=== PATIENT | male | born 1975 | race Caucasian/White ===

== ENCOUNTER 2018-12-16 07:45 | Observation (INO) ==
[2018-12-16] MEDS ORDERED: ASPIRIN 81 MG CHEWTAB PO ONE (08:05)
[2018-12-16] MEDS ORDERED: ASPIRIN 81 MG CHEWTAB ONE (08:06)
[2018-12-16] MEDS ORDERED: NITROSTAT ONE (08:07)
[2018-12-16 08:10] LABS: BASOPHILS # (AUTO) 0.1 X10^3/uL (0.0-0.1); BASOPHILS % (AUTO) 0.7 % (0.2-1.0); EOSINOPHILS # (AUTO) 0.3 x10^3/uL (0.0-0.2); EOSINOPHILS % (AUTO) 1.8 % (0.9-2.9); HEMOGLOBIN 16.9 g/dL (13.5-18.0); LYMPHOCYTES # (AUTO) 3.1 X10^3/uL (1.3-2.9); LYMPHOCYTES % (AUTO) 20.2 % (21.0-51.0); MEAN CORPUSCULAR HEMOGLOBIN 28.4 pg (27.0-34.0); MEAN CORPUSCULAR HGB CONC 34.4 g/dL (33.0-35.0); MEAN CORPUSCULAR VOLUME 82.4 fL (80.0-100.0); MEAN PLATELET VOLUME 8.3 fL (7.4-11.0); MONOCYTES # (AUTO) 0.8 x10^3/uL (0.3-0.8); MONOCYTES % (AUTO) 5.4 % (0.0-13.0); NEUTROPHILS # (AUTO) 10.9 x10^3/uL (2.2-4.8); NEUTROPHILS % (AUTO) 71.9 % (42.0-75.0); PLATELET COUNT 212 X10^3/uL (150.0-450.0); RED BLOOD COUNT 5.94 X10^6/uL (4.7-6.0); RED CELL DISTRIBUTION WIDTH 14.6 % (11.6-16.5); WHITE BLOOD COUNT 15.1 X10^3/uL (3.6-10.0)
[2018-12-16] MEDS: NITROSTAT SL PRN ×2 (08:11→08:26)
[2018-12-16] MEDS ORDERED: PEPCID 20 MG IV PREMIX* 20 MG/50 ML BAG IV ONE (08:15)
[2018-12-16] MEDS ORDERED: PEPCID 20 MG IV PREMIX* 20 MG/50 ML BAG ONE (08:18)
--- NOTE | 2018-12-16 08:23 | DR.CP ---
HPI Time Seen Time Seen by Provider: 12/16/18 08:05 PCP Primary Care Physician: nori HPI Comment HPI Comment: PATIENT IS 42YR OLD WHITE MALE WITH 9/10 MID SUBSTERNAL PRESSURE SINCE YESTERDAY. Complaint Chief Complaint Doctor Comments: CHEST PAIN TIMES ONE DAY. Chief Complaint:: patient stated he started having chest pain yesterday evening but was worse through the night. pt statetd it fells like a constant heart burn with mid chest pressure and short of breath. Source History Provided: Patient Mode of Arrival Mode of Arrival: Ambulatory Timing Onset of Chief Complaint: 12/15/18 Location Chest Pain Radiation Location: None Associated Signs and Symptoms Associated Signs and Symptoms: None PMH PMH Past Medical History: No Past Surgical History: No Family History History of Family Medical Conditions: No Social History Does patient currently use any type of tobacco product: No Have you used tobacco products in the last 12 months: No Type of Tobacco Use: Cigarettes How many years tobacco product used: 1 Does any household member use tobacco: No Alcohol Use: None Do you use any recreational Drugs:: No Lives With: Alone Lives Where: Home infectious screening In the last 2 months have you had wt loss of >10#?: NO Have you had fever, night sweats or hemotysis?: No Have you traveled outside the country in the last 6 months?: No Isolation: Standard ROS Review of Systems Constitutional: See HPI, Weakness and Fatigue; negative Fever Eyes: No Symptoms Reported and See HPI; negative Eye Pain, Blurred Vision and Diplopia ENTM: No Symptoms Reported and See HPI; negative Ear Pain, Nose Discharge, Nose Congestion and Throat Pain Respiratoy: See HPI and Short of Breath; negative Productive Cough and Wheezing Cardiovascular: See HPI and Chest Pain; negative Edema, Palpitations and Syncope Gastrointestinal/Abdominal: See HPI and Nausea; negative Abdominal Pain, Consti pation, Diarrhea and Vomiting Genitourinary: No Symptoms Reported and See HPI; negative Dysuria, Frequency and Hematuria Neurological: See HPI and Weakness; negative Headache and Dizziness Musculoskeletal: No Symptoms Reported and See HPI; negative Back Pain and Muscle Pain Integumentary: No Symptoms Reported and See HPI; negative Change in Color, Bruises and Juandice Hematologic/Lymphatic: No Symptoms Reported and See HPI; negative Easy Bruising, Swollen Glands and Lymphadenopathy Endocrine: No Symptoms Reported and See HPI; negative Increased Thirst, Increased Urine and Decreased Appetite Psychiatric: No Symptoms Reported and See HPI All Other Systems: Reviewed and Negative PE Vitals Vitals: Temperature 98.6 F Pulse Rate [Left Brachial] 63 Pulse Rate 62 Respiratory Rate 16 Blood Pressure [Left Arm] 147/67 Blood Pressure 157/89 O2 Sat by Pulse Oximetry 97 General Limitations: No Limitations General Appearance: Alert and In No Apparent Distress Head Head Exam: Normal Inspection, Atraumatic and Normocephalic Eyes Eye exam: Normal Appearance, PERRL and EOMI; negative Scleral Icterus and Conjunctival Injection ENT ENT Exam: Normal Exam, Normal Oropharynx, Normal External Ear Exam and TM's Normal Bilaterally Chest Chest Inspection: Normal Inspection and Symmetric Chest Wall Rise; negative Tenderness Respiratory Respiratory Exam: Normal Lung Sounds Bilat; negative Accessory Muscle Use, Chest Wall Tenderness and Respiratory Distress Respiratory Exam: Bilateral: Clear to Auscultation Cardiovascular Cardiovascular Exam: Regular Rate, Normal Rhythm and Normal Heart Sounds; negative Systolic Murmur and Diastolic Murmur Abdominal Exam Abdominal Exam: Normal Inspection, Normal Bowel Sounds and Soft; negative Tenderness Extremities Extremities Exam: Normal Inspection Back Back Exam: Normal Inspection Neurologic Neurological Exam: Alert and Oriented X3; negative Motor Sensory Deficit Psychiatric Psychiatric Exam: Normal Affect Skin Skin Exam: Warm, Dry, Intact and Normal Color MDM Differential Diagnosis Differential Diagnosis: Angina, Chest Wall Pain, Cholelithasis, CHF, Costochondritis, Gastritis, Myocardial Infarction, Pericarditis, Pleuritis, Pancreatitis, Pneumonia, Pneumothorax and Pulmonary Embolus COURSE Treatment Treatment: SEE ORDERS. Education/Counseling Education/Counseling: Patient Educated On: Diagnosis ROR Labs Reviewed Laboratory Results Reviewed?: Yes Result Diagrams: 12/16/18 08:00 12/16/18 08:00 Laboratory: WBC 15.1 X10^3/uL (3.6-10.0) H 12/16/18 08:00 RBC 5.94 X10^6/uL (4.7-6.0) 12/16/18 08:00 Hgb 16.9 g/dL (13.5-18.0) 12/16/18 08:00 Hct 49.0 % (42.0-54.0) 12/16/18 08:00 MCV 82.4 fL (80.0-100.0) 12/16/18 08:00 MCH 28.4 pg (27.0-34.0) 12/16/18 08:00 MCHC 34.4 g/dL (33.0-35.0) 12/16/18 08:00 RDW 14.6 % (11.6-16.5) 12/16/18 08:00 Plt Count 212 X10^3/uL (150.0-450.0) 12/16/18 08:00 MPV 8.3 fL (7.4-11.0) 12/16/18 08:00 Neut % (Auto) 71.9 % (42.0-75.0) 12/16/18 08:00 Lymph % (Auto) 20.2 % (21.0-51.0) L 12/16/18 08:00 [place] % (Auto) 5.4 % (0.0-13.0) 12/16/18 08:00 Eos % (Auto) 1.8 % (0.9-2.9) 12/16/18 08:00 Baso % (Auto) 0.7 % (0.2-1.0) 12/16/18 08:00 Neut # (Auto) 10.9 x10^3/uL (2.2-4.8) H 12/16/18 08:00 Lymph # (Auto) 3.1 X10^3/uL (1.3-2.9) H 12/16/18 08:00 [place] # (Auto) 0.8 x10^3/uL (0.3-0.8) 12/16/18 08:00 Eos # (Auto) 0.3 x10^3/uL (0.0-0.2) H 12/16/18 08:00 Baso # (Auto) 0.1 X10^3/uL (0.0-0.1) 12/16/18 08:00 Absolute Nucleated RBC 0.0 /100WBC 12/16/18 08:00 INR Target Range - 12/16/18 08:00 INR 1.00 (0.8-1.3) 12/16/18 08:00 APTT 33.2 SECONDS (22.9-36.5) 12/16/18 08:00 PTT Comment - 12/16/18 08:00 Sodium 138 mmol/L (136-145) 12/16/18 08:00 Corrected Sodium TNP 12/16/18 08:00 Potassium 4.3 mmol/L (3.5-5.1) 12/16/18 08:00 Chloride 103 mmol/L (98-107) 12/16/18 08:00 Carbon Dioxide 29.7 mmol/L (21-32) 12/16/18 08:00 BUN 9 mg/dL (7-18) 12/16/18 08:00 Creatinine 1.14 mg/dL (0.70-1.30) 12/16/18 08:00 Est GFR (MDRD) Af Amer > 60 (>60) 12/16/18 08:00 Est GFR (MDRD) Non-Af > 60 (>60) 12/16/18 08:00 Glucose 108 mg/dL (65-99) H 12/16/18 08:00 Calcium 9.2 mg/dL (8.5-10.1) 12/16/18 08:00 Corrected Calcium TNP 12/16/18 08:00 Magnesium 2.1 mg/dL (1.7-2.9) 12/16/18 08:00 Total Bilirubin 0.40 mg/dL (0.2-1.0) 12/16/18 08:00 AST 10 Units/L (15-37) L 12/16/18 08:00 ALT 29 Units/L (12-78) 12/16/18 08:00 Alkaline Phosphatase 86 Units/L (46-116) 12/16/18 08:00 Creatine Kinase 70 Units/L (39-308) 12/16/18 08:00 CK-MB (CK-2) < 1.0 ng/mL (0-4.0) 12/16/18 08:00 CK/CKMB % Calc 1.4 % (<4) 12/16/18 08:00 Troponin I < 0.02 ng/mL (0-1.5) 12/16/18 08:00 Total Protein 7.9 g/dL (6.4-8.2) 12/16/18 08:00 Albumin 3.8 g/dL (3.4-5.0) 12/16/18 08:00 Globulin 4.1 g/dL (2.5-4.5) 12/16/18 08:00 Albumin/Globulin Ratio 0.9 Ratio (1.1-2.1) L 12/16/18 08:00 Opioid Opioid Risk Tool Total: 0 Total Score Risk Category: Low Risk Copyright: Jack ADAMS predicting aberrant behaviors
[2018-12-16 08:25] LABS: BLOOD UREA NITROGEN 9 mg/dL (7-18); CALCIUM 9.2 mg/dL (8.5-10.1); CARBON DIOXIDE 29.7 mmol/L (21-32); CHLORIDE 103 mmol/L (98-107); CREATININE 1.14 mg/dL (0.70-1.30); SODIUM 138 mmol/L (136-145); TROPONIN I < 0.02 ng/mL (0-1.5); eGFR NON BLACK RACES > 60 (>60)
[2018-12-16 08:29] LABS: ALANINE AMINOTRANSFERASE 29 Units/L (12-78); ALBUMIN 3.8 g/dL (3.4-5.0); ALKALINE PHOSPHATASE 86 Units/L (46-116); ASPARTATE AMINO TRANSFERASE 10 Units/L (15-37); CKMB % 1.4 % (<4); CREATINE KINASE 70 Units/L (39-308); CREATINE KINASE MB < 1.0 ng/mL (0-4.0); MAGNESIUM 2.1 mg/dL (1.7-2.9); TOTAL PROTEIN 7.9 g/dL (6.4-8.2)
--- NOTE | 2018-12-16 08:36 | RAD ---
HISTORY: Chest pain since yesterday Study: Single-view chest Comparison: No priors Findings: Trachea is midline. There is mild cardiomegaly with pulmonary vascular congestion. No CHF or infiltrate is seen. There is mild elevation of the right hemidiaphragm. There is no evidence of pleural fluid or pneumothorax. Osseous structures are intact. IMPRESSION: Mild cardiomegaly with pulmonary vascular congestion. No CHF or infiltrate is seen. Reported By:
[2018-12-16] MEDS ORDERED: MORPHINE SULFATE INJ 4 MG IVP ONE (09:56)
[2018-12-16] MEDS ORDERED: MORPHINE SULFATE INJ 4 MG ONE (09:58)
[2018-12-16] MEDS ORDERED: ZOFRAN INJ 4 MG VIAL IVP PRN (12:42)
[2018-12-16 12:48] VITALS: BMI 34.2
[2018-12-16] MEDS: NS 1000 ML 1,000 ML IV SCH (13:09)
[2018-12-16] MEDS: MORPHINE SULFATE INJ 4 MG IVP PRN ×2 (14:29→20:17)
[2018-12-16 15:41] LABS: CKMB % 1.8 % (<4); CREATINE KINASE 55 Units/L (39-308); CREATINE KINASE MB < 1.0 ng/mL (0-4.0)
[2018-12-16 16:01] LABS: TROPONIN I < 0.02 ng/mL (0-1.5)
[2018-12-16] MEDS: PEPCID 20 MG IV PREMIX* 20 MG/50 ML BAG IV SCH (20:17)
[2018-12-16 21:01] LABS: CREATINE KINASE 51 Units/L (39-308); CREATINE KINASE MB < 1.0 ng/mL (0-4.0); TROPONIN I < 0.02 ng/mL (0-1.5)
--- NOTE | 2018-12-16 21:59 | DR.H&P ---
H&P - History & Physical for Day of: H&P Date: 12/16/18 - Chief Complaint Chief Complaint: CHEST PAIN - History of Present Illness History of Present Illness: IS A 42 YEAR OLD PATIENT OF . HE PRESENTED TO THE ER WITH COMPLAINTS OF CHEST PAIN THAT STARTED ONE DAY AGO. IT IS DESCRIBED BURNING TO THE MID CHEST. HE ALSO REPORTS SHORTNESS OF BREATH. HE RATES PAIN 9/10. ON ARRIVAL, VITALS WERE 98.6-62-16-100%-157/89. LABS WERE OBTAINED. ABNORMAL LAB VALUES INCLUDE THE FOLLOWING: WBC 15.1, GLUCOSE 108, AST 10. CARDIAC ENZYMES WITHIN NORMAL LIMITS. EKG OBTAINED AND REVEALED SINUS RHYTHM WITH HR 65. CHEST XRAY OBTAINED AND REVEALED: Mild cardiomegaly with pulmonary vascular congestion. No CHF or infiltrate is seen. HE WAS GIVEN MORPHIN 4MG IV X 1 DOSE, PEPCID 20MG IV X 1 DOSE, AND ASPIRIN 325MG PO X 1 DOSE IN THE ER. WE ADMITTED PATIENT FOR FURTHER EVALUATION AND TREATMENT OF CHEST PAIN, RULE OUT ACUTE [place]. HE WAS STARTED ON NORMAL SALINE AT 50ML/HR, PEPCID 20MG IV Q12, MORPHINE 4MG IV Q4H PRN, ZOFRAN 4MG IV Q6H PRN, AND NITROGLYCERIN PRN. WE PLAN TO OBTAIN SERIAL CARDIAC ENZYMES AND EKGS. OTHERWISE, WE WILL FOLLOW UP WITH AM LABS AND CONTINUE TO MONITOR. - Family History Family Medical History: [place], Coronary Artery Disease, Hypertension - Social History Does patient currently use any type of tobacco product: No Have you used tobacco products in the last 12 months: No Type of Tobacco Use: Cigarettes How many years tobacco product used: 1 Does any household member use tobacco: No Alcohol Use: None Drug Use: None - Medications Home Medications: No Known Drug Allergies Allergy (Verified 12/16/18 08:04) CONTINUE taking the following medications NK 12/16/18 [History] - Review of Systems Constitutional: No Symptoms Reported Eyes: No Symptoms Reported ENT: No Symptoms Reported Respiratory: Cough, Shortness of Breath Cardiovascular: Chest Pain Gastrointestinal: No Symptoms Reported Genitourinary: No Symptoms Reported Musculoskeletal: No Symptoms Reported Skin: No Symptoms Reported Neurological: No Symptoms Reported - Physical Exam Vital Signs: Temperature 99.0 F Pulse Rate [Left Brachial] 81 Pulse Rate 62 Respiratory Rate 20 Blood Pressure [Left Arm] 143/81 Blood Pressure 157/89 O2 Sat by Pulse Oximetry 97 Oriented: Normal Eyes: Normal Ear: Normal Nose: Normal Throat: Normal Respiratory: Diminished Throughout Cardiovascular: Normal : Normal Auscultation: Bowel Sounds: Normal Palpation: Normal Tenderness: Normal Skin: Normal Musculoskeletal: Normal Psychiatric: Normal Mood Description: Calm Affect: Normal Speech Pattern: Clear - Assessment/Plan (1) Chest pain, rule out acute myocardial infarction Status: Acute Plan: ADMIT, SERIAL CARDIAC ENZYMES AND EKG, MORPHINE PRN, NITRO PRN, SUPPLEMENTAL OXYGEN, CONTINUE TO MONITOR - Allergies Allergies/Adverse Reactions: Allergies Allergy/AdvReac Type Severity Reaction Status Date / Time No Known Drug Allergies Allergy Verified 12/16/18 08:04
[2018-12-17 05:21] LABS: BASOPHILS # (AUTO) 0.1 X10^3/uL (0.0-0.1); BASOPHILS % (AUTO) 0.7 % (0.2-1.0); EOSINOPHILS # (AUTO) 0.4 x10^3/uL (0.0-0.2); EOSINOPHILS % (AUTO) 3.2 % (0.9-2.9); HEMATOCRIT 45.6 % (42.0-54.0); HEMOGLOBIN 15.3 g/dL (13.5-18.0); LYMPHOCYTES # (AUTO) 2.5 X10^3/uL (1.3-2.9); LYMPHOCYTES % (AUTO) 21.1 % (21.0-51.0); MEAN CORPUSCULAR HEMOGLOBIN 28.1 pg (27.0-34.0); MEAN CORPUSCULAR HGB CONC 33.7 g/dL (33.0-35.0); MEAN CORPUSCULAR VOLUME 83.4 fL (80.0-100.0); MEAN PLATELET VOLUME 9.1 fL (7.4-11.0); MONOCYTES # (AUTO) 0.8 x10^3/uL (0.3-0.8); MONOCYTES % (AUTO) 7.1 % (0.0-13.0); NEUTROPHILS # (AUTO) 7.9 x10^3/uL (2.2-4.8); NEUTROPHILS % (AUTO) 67.9 % (42.0-75.0); PLATELET COUNT 182 X10^3/uL (150.0-450.0); RED BLOOD COUNT 5.46 X10^6/uL (4.7-6.0); RED CELL DISTRIBUTION WIDTH 14.3 % (11.6-16.5); WHITE BLOOD COUNT 11.7 X10^3/uL (3.6-10.0)
[2018-12-17 05:38] LABS: ALANINE AMINOTRANSFERASE 22 Units/L (12-78); ALBUMIN 3.1 g/dL (3.4-5.0); ALKALINE PHOSPHATASE 77 Units/L (46-116); ASPARTATE AMINO TRANSFERASE 9 Units/L (15-37); BLOOD UREA NITROGEN 9 mg/dL (7-18); CALCIUM 8.7 mg/dL (8.5-10.1); CARBON DIOXIDE 27.2 mmol/L (21-32); CHLORIDE 104 mmol/L (98-107); CHOLESTEROL 116 mg/dL (0-200); COR CA(FOR HYPOALB) 9.4 mg/dL (8.5-10.1); COR NA(FOR HYPERGLY) 139 mmol/L (136-145); CREATININE 0.96 mg/dL (0.70-1.30); HDL CHOLESTEROL 29 mg/dL (40-60); SODIUM 138 mmol/L (136-145); TOTAL PROTEIN 6.6 g/dL (6.4-8.2); TRIGLYCERIDES 136 mg/dL (0-150); eGFR NON BLACK RACES > 60 (>60)
[2018-12-17] MEDS: NS 1000 ML 1,000 ML IV SCH ×2 (06:55→12:05)
[2018-12-17] MEDS: PEPCID 20 MG IV PREMIX* 20 MG/50 ML BAG IV SCH ×2 (08:14→21:54)
[2018-12-17] MEDS: ASPIRIN PO SCH (08:14)
[2018-12-17] MEDS: LEVSIN/MAALOX/LIDOC VISC PO SCH ×4 (10:05→21:53)
[2018-12-17] MEDS: NITROSTAT SL PRN (15:35)
[2018-12-17 16:21] LABS: CREATINE KINASE 41 Units/L (39-308); CREATINE KINASE MB < 1.0 ng/mL (0-4.0); TROPONIN I < 0.02 ng/mL (0-1.5)
[2018-12-17 16:26] LABS: CKMB % 2.4 % (<4)
[2018-12-17] MEDS: MORPHINE SULFATE INJ 4 MG IVP PRN (22:00)
[2018-12-18] MEDS: NS 1000 ML 1,000 ML IV SCH ×2 (01:00→05:10)
[2018-12-18 05:35] LABS: BASOPHILS # (AUTO) 0.1 X10^3/uL (0.0-0.1); EOSINOPHILS # (AUTO) 0.4 x10^3/uL (0.0-0.2); EOSINOPHILS % (AUTO) 3.7 % (0.9-2.9); HEMATOCRIT 46.6 % (42.0-54.0); HEMOGLOBIN 15.9 g/dL (13.5-18.0); LYMPHOCYTES % (AUTO) 26.1 % (21.0-51.0); MEAN CORPUSCULAR HEMOGLOBIN 28.4 pg (27.0-34.0); MEAN CORPUSCULAR HGB CONC 34.1 g/dL (33.0-35.0); MEAN CORPUSCULAR VOLUME 83.1 fL (80.0-100.0); MONOCYTES # (AUTO) 0.9 x10^3/uL (0.3-0.8); MONOCYTES % (AUTO) 7.5 % (0.0-13.0); NEUTROPHILS % (AUTO) 61.7 % (42.0-75.0); PLATELET COUNT 180 X10^3/uL (150.0-450.0); RED CELL DISTRIBUTION WIDTH 14.4 % (11.6-16.5); WHITE BLOOD COUNT 11.3 X10^3/uL (3.6-10.0)
[2018-12-18 05:55] LABS: ALANINE AMINOTRANSFERASE 44 Units/L (12-78); ALBUMIN 3.1 g/dL (3.4-5.0); ALKALINE PHOSPHATASE 81 Units/L (46-116); ASPARTATE AMINO TRANSFERASE 18 Units/L (15-37); BLOOD UREA NITROGEN 11 mg/dL (7-18); CALCIUM 8.8 mg/dL (8.5-10.1); CARBON DIOXIDE 26.8 mmol/L (21-32); CHLORIDE 104 mmol/L (98-107); COR CA(FOR HYPOALB) 9.5 mg/dL (8.5-10.1); SODIUM 140 mmol/L (136-145); TOTAL PROTEIN 6.9 g/dL (6.4-8.2); eGFR NON BLACK RACES > 60 (>60)
[2018-12-18 08:06] VITALS: BP 141/66
[2018-12-18] MEDS: LEVSIN/MAALOX/LIDOC VISC PO SCH (08:43)
[2018-12-18] MEDS: PEPCID 20 MG IV PREMIX* 20 MG/50 ML BAG IV SCH (08:43)
[2018-12-18] MEDS: ASPIRIN PO SCH (08:44)
--- NOTE | 2018-12-18 21:16 | PCM.PROG ---
Progress Note - Progress Note for Day of Date of Exam: 12/17/18 - Subjective Subjective: WAS ADMITTED FOR CHEST PAIN, RULE OUT ACUTE PA. TODAY, HE IS ALERT AND ORIENTED, LYING IN BED ON MORNING ROUNDS. HE CONTINUES WITH SHORTNESS OF BREATH AND MILD, INTERMITTENT PAIN. ON EXAMINATION, HEART IS REGULAR IN RATE AND RHYTHM. BILATERAL LUNGS ARE NOTED TO BE CLEAR TO AUSCULTAT ION. ABDOMEN IS ROUND, SOFT, AND NON-TENDER WITH NORMAL BOWEL SOUNDS IN ALL QUADRANTS. HIS VITALS THIS MORNING ARE: 98.4-71-20-97%-135/63. LABS WERE OBTAINED. ABNORMAL LAB VALUES INCLUDE THE FOLLOWING: WBC 11.7, GLUCOSE 128, AST 9, ALBUMIN 3.1, HDL 29. CARDIAC ENZYMES WERE WITHIN NORMAL LIMITS. NO CHANGES NOTED TO EKGS. TODAY, WE WILL START GI COCKTAIL. OTHERWISE, WE WILL CONTINUE TO MONITOR SERIAL CARDIAC ENZYMES AND EKGs. WE PLAN TO FOLLOW UP WITH AM LABS AND CONTINUE TO MONITOR. - Past Medical Family Social History Past Med/Fam/Surg Hx: No changes since H&P Allergies: Allergies No Known Drug Allergies Allergy (Verified 12/16/18 08:04) - Review of Systems ROS: No change since H&P - Vital Signs and I&O's Vital Signs: Temperature 98.3 F Pulse Rate [Left Brachial] 69 Pulse Rate 62 Respiratory Rate 20 Blood Pressure [Left Arm] 141/66 Blood Pressure 157/89 O2 Sat by Pulse Oximetry 97 Intake and Output: Intake & Output 12/16/18 12/17/18 12/18/18 12/19/18 11:59 11:59 11:59 11:59 Intake Total 1805 / 1805 1300 / 1300 Balance 1805 / 1805 1300 / 1300 - Physical Exam Oriented: Normal Eyes: Normal Ear: Normal Nose: Normal Throat: Normal Respiratory: Normal Cardiovascular: Normal : Normal Auscultation: Bowel Sounds: Normal Palpation: Normal Tenderness: Normal Skin: Normal Musculoskeletal: Normal Psychiatric: Normal Mood Description: Calm Affect: Normal Speech Pattern: Clear, Appropriate - Laboratory and Diagnostics Result Diagrams: 12/18/18 04:53 12/18/18 04:53 Labs: Laboratory WBC 11.3 X10^3/uL (3.6-10.0) H 12/18/18 04:53 RBC 5.60 X10^6/uL (4.7-6.0) 12/18/18 04:53 Hgb 15.9 g/dL (13.5-18.0) 12/18/18 04:53 Hct 46.6 % (42.0-54.0) 12/18/18 04:53 MCV 83.1 fL (80.0-100.0) 12/18/18 04:53 MCH 28.4 pg (27.0-34.0) 12/18/18 04:53 MCHC 34.1 g/dL (33.0-35.0) 12/18/18 04:53 RDW 14.4 % (11.6-16.5) 12/18/18 04:53 Plt Count 180 X10^3/uL (150.0-450.0) 12/18/18 04:53 MPV 9.0 fL (7.4-11.0) 12/18/18 04:53 Neut % (Auto) 61.7 % (42.0-75.0) 12/18/18 04:53 Lymph % (Auto) 26.1 % (21.0-51.0) 12/18/18 04:53 [place] % (Auto) 7.5 % (0.0-13.0) 12/18/18 04:53 Eos % (Auto) 3.7 % (0.9-2.9) H 12/18/18 04:53 Baso % (Auto) 1.0 % (0.2-1.0) 12/18/18 04:53 Neut # (Auto) 7.0 x10^3/uL (2.2-4.8) H 12/18/18 04:53 Lymph # (Auto) 3.0 X10^3/uL (1.3-2.9) H 12/18/18 04:53 [place] # (Auto) 0.9 x10^3/uL (0.3-0.8) H 12/18/18 04:53 Eos # (Auto) 0.4 x10^3/uL (0.0-0.2) H 12/18/18 04:53 Baso # (Auto) 0.1 X10^3/uL (0.0-0.1) 12/18/18 04:53 Absolute Nucleated RBC 0.1 /100WBC 12/18/18 04:53 INR Target Range - 12/16/18 08:00 INR 1.00 (0.8-1.3) 12/16/18 08:00 APTT 33.2 SECONDS (22.9-36.5) 12/16/18 08:00 PTT Comment - 12/16/18 08:00 Sodium 140 mmol/L (136-145) 12/18/18 04:53 Corrected Sodium TNP 12/18/18 04:53 Potassium 3.9 mmol/L (3.5-5.1) 12/18/18 04:53 Chloride 104 mmol/L (98-107) 12/18/18 04:53 Carbon Dioxide 26.8 mmol/L (21-32) 12/18/18 04:53 BUN 11 mg/dL (7-18) 12/18/18 04:53 Creatinine 0.90 mg/dL (0.70-1.30) 12/18/18 04:53 Est GFR (MDRD) Af Amer > 60 (>60) 12/18/18 04:53 Est GFR (MDRD) Non-Af > 60 (>60) 12/18/18 04:53 Glucose 97 mg/dL (65-99) 12/18/18 04:53 Calcium 8.8 mg/dL (8.5-10.1) 12/18/18 04:53 Corrected Calcium 9.5 mg/dL (8.5-10.1) 12/18/18 04:53 Magnesium 2.1 mg/dL (1.7-2.9) 12/16/18 08:00 Total Bilirubin 0.30 mg/dL (0.2-1.0) 12/18/18 04:53 AST 18 Units/L (15-37) 12/18/18 04:53 ALT 44 Units/L (12-78) 12/18/18 04:53 Alkaline Phosphatase 81 Units/L (46-116) 12/18/18 04:53 Creatine Kinase 41 Units/L (39-308) 12/17/18 15:50 CK-MB (CK-2) < 1.0 ng/mL (0-4.0) 12/17/18 15:50 CK/CKMB % Calc 2.4 % (<4) 12/17/18 15:50 Troponin I < 0.02 ng/mL (0-1.5) 12/17/18 15:50 Total Protein 6.9 g/dL (6.4-8.2) 12/18/18 04:53 Albumin 3.1 g/dL (3.4-5.0) L 12/18/18 04:53 Globulin 3.8 g/dL (2.5-4.5) 12/18/18 04:53 Albumin/Globulin Ratio 0.8 Ratio (1.1-2.1) L 12/18/18 04:53 Triglycerides 136 mg/dL (0-150) 12/17/18 04:26 Cholesterol 116 mg/dL (0-200) 12/17/18 04:26 LDL Cholesterol, Calc 60 mg/dL (0-100) 12/17/18 04:26 HDL Cholesterol 29 mg/dL (40-60) L 12/17/18 04:26 Cholesterol/HDL Ratio 4.0 (0.0-5.0) 12/17/18 04:26 Urine Opiates Screen Positive (NEG=<300) 12/16/18 14:30 Urine Methadone Screen Negative (NEG=<300) 12/16/18 14:30 Ur Barbiturates Screen Negative (NEG=<200) 12/16/18 14:30 Ur Phencyclidine Scrn Negative (NEG=<25) 12/16/18 14:30 Ur Amphetamines Screen Negative (NEG=<1000) 12/16/18 14:30 U Benzodiazepines Scrn Negative (NEG=<200) 12/16/18 14:30 Urine Cocaine Screen Negative (NEG=<300) 12/16/18 14:30 U Marijuana (THC) Screen Negative (NEG=<50) 12/16/18 14:30 - Plan (1) Chest pain, rule out acute myocardial infarction Status: Acute Plan: SERIAL CARDIAC ENZYMES AND EKG, MORPHINE PRN, NITRO PRN, SUPPLEMENTAL OXYGEN, CONTINUE TO MONITOR
== END 2018-12-18 11:30 | disposition home or self-care (01) ==
LOC: MED/SURG 07:47 → ER 07:47 → MED/SURG 12:17
PROVIDERS: ADMIT Internal Medicine; ATTEND Internal Medicine
DX: R06.02 Shortness of breath; R07.89 Other chest pain; I11.9 Hypertensive heart disease without heart failure
CPT/HCPCS: 36415; 71010; 71045; 80053; 80061; 80307; 82550; 82553; 83735; 84484; 85025; 85610; 85730; 93005; 94760; 96365; 96367; 96374; 96375; 99284; A4222; S0028; G0378; G0434; J2270; J7030